=== PATIENT | male | born 1940 | race American Indian/Alaskan Native ===

== ENCOUNTER 2016-09-09 15:04 | Inpatient (IN) | payer MEDICARE ==
--- NOTE | 2016-09-09 18:36 | Emergency Department Report ---
HPI - General Chief Complaint: Urogenital-Male Time Seen by Provider: 09/09/16 18:01 - HPI HPI: This is a 76-year-old Afro-Wallisian male presents to the emergency department with complaint of left testicular pain has been going on for the past 2 days. He denies any trauma. He denies any skin color change, swelling or lesions. He has not taken anything for symptoms prior to presentation. He has a past medical history of diabetes, HIV, hypertension and previous DVT. The patient is currently on Coumadin. He denies any dysuria, discharge or any problems with urination. He is visiting his son here in [place] but does not live here and therefore does not have a local primary care physician. ED Past Medical Hx - Past Medical History Hx Hypertension: Yes Hx Diabetes: Yes Hx HIV: Yes - Surgical History Additional Surgical History: brain surgery tumor - Social History Smoking Status: Never Smoker Substance Use Type: None - Medications Home Medications: Home Medications Medication Instructions Recorded Confirmed Last Taken Type Acetaminophen [Non-Aspirin Pain 500 mg PO 09/09/16 Unknown History Relief] Atazanavir Sulfate [Reyataz] 200 mg PO 09/09/16 Unknown History Coumadin 09/09/16 Unknown History Emtricitabine [Emtriva] 200 mg PO 09/09/16 Unknown History Lantus VIAL 09/09/16 Unknown History Pravastatin 09/09/16 Unknown History Raltegravir Potassium [Isentress] 400 mg PO BID 09/09/16 09/09/16 Unknown History ED Review of Systems ROS: Stated complaint: PAIN IN LEFT TESTICLE Other details as noted in HPI Comment: All other systems reviewed and negative Constitutional: denies: chills, fever Eyes: denies: eye pain, eye discharge, vision change ENT: denies: ear pain, throat pain Respiratory: denies: cough, shortness of breath, wheezing Cardiovascular: denies: chest pain, palpitations Gastrointestinal: denies: abdominal pain, nausea, diarrhea Genitourinary: testicular pain. denies: dysuria, hematuria, discharge, testicular mass Skin: denies: rash, lesions Neurological: denies: headache, weakness, paresthesias Physical Exam - Physical Exam Vital Signs: Vital Signs 09/09/16 09/09/16 09/09/16 15:42 18:00 18:01 Temperature 98.1 F Pulse Rate 69 Respiratory 16 Rate Blood Pressure 125/75 165/75 O2 Sat by Pulse 100 98 98 Oximetry 09/09/16 18:06 Temperature Pulse Rate Respiratory 16 Rate Blood Pressure O2 Sat by Pulse 98 Oximetry Physical Exam: GENERAL: The patient is well-developed well-nourished. HEENT: Normocephalic. Atraumatic. Extraocular motions are intact. Patient has moist mucous membranes. Pupils equal reactive to light bilaterally. NECK: Supple. Trachea is midline. CHEST/LUNGS: Clear to auscultation. There is no respiratory distress noted. HEART/CARDIOVASCULAR: Regular. There is no tachycardia. There is no gallop rub or murmur. ABDOMEN: Abdomen is soft, nontender. Patient has normal bowel sounds. There is no abdominal distention. SKIN: Skin is warm and dry. NEURO: The patient is awake, alert, and oriented. The patient is cooperative. The patient has no focal neurologic deficits. The patient has normal speech. MUSCULOSKELETAL: There is no tenderness or deformity. There is no limitation range of motion. There is no evidence of acute injury. : No tenderness to palpation to the penis or testicles. No inguinal hernia palpable. ED Course Vital Signs 09/09/16 09/09/16 09/09/16 15:42 18:00 18:01 Temperature 98.1 F Pulse Rate 69 Respiratory 16 Rate Blood Pressure 125/75 165/75 O2 Sat by Pulse 100 98 98 Oximetry 09/09/16 18:06 Temperature Pulse Rate Respiratory 16 Rate Blood Pressure O2 Sat by Pulse 98 Oximetry ED Medical Decision Making - Lab Data Result diagrams: 09/09/16 18:57 09/09/16 18:57 - Radiology Data Radiology results: report reviewed Testicular Doppler ultrasound shows blood flow detected to the bilateral testicles. Tunica albuginea cysts on the right. Bilateral epididymal cystic structures are noted that could be cysts or spermatoceles. Heterogenous masses are seen adjacent to the superior aspect of the left testicle. Etiology is uncertain. These could represent sequela from prior granulomatous, fibrous pseudotumor process or tumor. No current studies available for direct comparison. Urology consultation recommends. - Medical Decision Making 76-year-old male presents with a 2-3 day history of left testicular pain. Ultrasound done that shows no signs of torsion but there are some heterogenous masses around the left testicle that require a urological consultation at some point. There is no UTI. However the patient's blood work show some renal insufficiency and significant hyperkalemia with a potassium of 6.1. Patient given the hyperkalemia cocktail but will be admitted for further evaluation and treatment and has been accepted for admission by the hospitalist, Dr. Paz. - Differential Diagnosis torsion, epididymitis, malignancy Critical Care Time: No Critical care attestation.: If time is entered above; I have spent that time in minutes in the direct care of this critically ill patient, excluding procedure time. ED Disposition Clinical Impression: Left testicular pain, Hyperkalemia Disposition: OP ADMITTED IP TO THIS HOSP Is pt being admited?: Yes Condition: Stable Referrals: PRIMARY CARE, [Primary Care Provider] - 3-5 Days Time of Disposition: 22:38
--- NOTE | 2016-09-09 19:00 | Ultrasound Report ---
FINAL REPORT EXAM: US TESTICULAR DOPPLER COMP HISTORY: left side tedticular pain TECHNIQUE: Multiple grayscale sonographic images were obtained of the scrotum and its contents. Doppler interrogation of the testicles was performed. PRIORS: None. FINDINGS: The right testicle measures approximately 3.4 x 2.1 x 2.7 centimeters. It has normal echotexture and blood flow. There is a tunica albuginea cyst that measures approximately 4 x 3 x 5 millimeters. There is a cystic structure in the epididymal head that measures approximately 2 x 2 x 1 millimeters. The left testicle measures approximately 2.9 x 2 x 2.6 centimeters. It has normal echotexture and blood flow. There is a cystic structure in left epididymis that measures approximately 4 x 3 x 3 millimeters. Superior to the left testicles there is a heterogeneous mass that measures approximately 3.3 x 2.2 x 2.9 centimeters. There is a 2nd heterogeneous hyperechoic structure adjacent to this that measures approximately 9 x 8 x 6 millimeters. IMPRESSION: 1. Blood flow was detected in the testicles, bilaterally. 2. Tunica albuginea cysts is seen on the right. 3. Bilateral epididymal cystic structures are noted. These may represent epididymal cysts or spermatoceles. 4. Heterogeneous masses are seen adjacent to the superior aspect of the left testicle. Etiology is uncertain. These could represent sequelae from prior granulomatous, fibrous pseudotumor process or tumor. Other consideration would include sarcoid in the proper clinical setting. There are currently no studies available for direct comparison. Urology consultation is recommended.
[2016-09-09 19:21] LABS: Bilirubin,Urine NEG (Negative); Blood,Urine NEG (Negative); Ketones,Urine NEG (Negative); Leukocyte Esterase,Urine NEG (Negative); Nitrite,Urine NEG (Negative); Urobilinogen,Urine < 2.0 mg/dL (<2.0); WBC,Urine < 1.0 /HPF (0.0-6.0)
[2016-09-09 20:07] LABS: Basophils % (Auto) 0.5 % (0.0-1.8); Eosinophils % (Auto) 2.2 % (0.0-4.3); Hematocrit 50.1 % (35.5-45.6); Hemoglobin 16.2 gm/dl (11.8-15.2); Mean Corpuscular HGB Conc 32 % (32-34); Mean Corpuscular Hemoglobin 28 pg (28-32); Mean Corpuscular Volume 86 fl (84-94); Platelet Count 163 K/mm3 (140-440); Red Blood Count 5.82 M/mm3 (3.65-5.03); Red Cell Distribution Width 15.9 % (13.2-15.2); White Blood Count 6.1 K/mm3 (4.5-11.0)
[2016-09-09 20:19] LABS: INR 2.29 (0.87-1.13)
[2016-09-09 20:20] LABS: Partial Thromboplastin Time 47.3 Sec. (24.2-36.6)
[2016-09-09 20:24] LABS: BUN/Creatinine Ratio 24.7; Calcium 9.4 mg/dL (8.4-10.2)
[2016-09-09 20:48] LABS: Potassium 6.1 mmol/L (3.6-5.0)
[2016-09-09] MEDS ORDERED: KIONEX PO ONE (20:57)
[2016-09-09] MEDS ORDERED: D50W (25GM) IV ONE (20:58)
[2016-09-09] MEDS ORDERED: PROVENTIL IH ONE (20:58)
[2016-09-09] MEDS ORDERED: D50W (25GM) IV PRN (22:31)
[2016-09-09] MEDS ORDERED: ZOFRAN IV PRN (22:31)
[2016-09-09] MEDS ORDERED: TYLENOL PO PRN (22:31)
[2016-09-09] MEDS ORDERED: DULCOLAX PR PRN (22:31)
[2016-09-09] MEDS ORDERED: MILK OF MAGNESIA PO PRN (22:31)
--- NOTE | 2016-09-09 23:06 | History and Physical Report ---
History of Present Illness Date of examination: 09/09/16 Chief complaint: Left testicular pain for 2 days History of present illness: This is a 76-year-old Afro-Maldivian male presents to the emergency department with complaint of left testicular pain for the past 2 days. He denies any trauma. He denies any skin color change, swelling or lesions. He has not taken anything for symptoms prior to presentation. He has a past medical history of diabetes, HIV, hypertension and previous DVT. The patient is currently on Coumadin. He denies any dysuria, discharge or any problems with urination. He is visiting his son here in [place] but does not live here and therefore does not have a local primary care physician. 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) Social history: no significant social history Family history: diabetes, hypertension Medications and Allergies Allergies Allergy/AdvReac Type Severity Reaction Status Date / Time No Known Allergies Allergy Verified 09/09/16 15:41 Home Medications Medication Instructions Recorded Confirmed Last Taken Type Acetaminophen [Non-Aspirin Pain 500 mg PO 09/09/16 Unknown History Relief] Atazanavir Sulfate [Reyataz] 200 mg PO 09/09/16 Unknown History Coumadin 09/09/16 Unknown History Emtricitabine [Emtriva] 200 mg PO 09/09/16 Unknown History Lantus VIAL 09/09/16 Unknown History Pravastatin 09/09/16 Unknown History Raltegravir Potassium [Isentress] 400 mg PO BID 09/09/16 09/09/16 Unknown History Active Meds: Active Medications Acetaminophen (Tylenol) 650 mg PO Q4H PRN PRN Reason: Pain MILD(1-3)/Fever >100.5/BASS Acetaminophen/Hydrocodone Bitart (Carmen 5/325) 1 each PO Q6H PRN PRN Reason: Pain, Moderate (4-6) Bisacodyl (Dulcolax) 10 mg HI QDAY PRN PRN Reason: Constipation unrelieved by MOM Dextrose (D50w (25gm)) 50 ml IV PRN PRN PRN Reason: Hypoglycemia Emtricitabine (Emtriva) 200 mg PO DAILY LUCY Sodium Chloride (Nacl 0.45% 1000 Ml) 1,000 mls @ 75 mls/hr IV DIRECT LUCY Insulin Aspart (Novolog) 0 units SUB-Q ACHS LUCY PRN Reason: Protocol Insulin Detemir (Levemir) 22 units SUB-Q QHS [facility] Losartan Potassium (Cozaar) 100 mg PO DAILY [facility] Magnesium Hydroxide (Milk Of Magnesia) 30 ml PO Q4H PRN PRN Reason: Constipation Miscellaneous Medication (Atazanavir Sulfate [Reyataz]) 200 mg PO DAILY [facility] Ondansetron HCl (Zofran) 4 mg IV Q8H PRN PRN Reason: N/V unrelieved by Reglan Raltegravir (Isentress) 400 mg PO BID [facility] Simvastatin (Zocor) 40 mg PO QHS LUCY Warfarin Sodium (Coumadin) 5 mg PO 1700 LUCY PRN Reason: Protocol Warfarin Sodium (Coumadin Pharmacy To Dose) 1 each PO PKCONSULT [facility] PRN Reason: Protocol Review of Systems Constitutional: no weight loss, no fever, no chills, no fatigue Ears, nose, mouth and throat: no ear pain, no ear discharge, no sinus pressure, no sore throat, no headache Cardiovascular: high blood pressure, no chest pain, no palpitations, no syncope , no lightheadedness, no shortness of breath Respiratory: no cough, no shortness of breath Gastrointestinal: no abdominal pain, no nausea, no vomiting, no diarrhea, no constipation, no melena Genitourinary Male: testicular pain (left sided for 2 days), no dysuria, no hematuria, no flank pain, no urinary frequency, no incontinence Rectal: no pain Musculoskeletal: no neck pain, no low back pain Integumentary: no rash Neurological: no head injury, no seizures, no syncope, no headaches Psychiatric: no anxiety, no depression Endocrine: no polyphagia, no excessive thirst, no polydipsia Exam - Constitutional Vitals: Temp Pulse Resp BP Pulse Ox 98.1 F 72 12 156/79 100 09/09/16 15:42 09/09/16 22:51 09/09/16 22:51 09/09/16 22:44 09/09/16 22:44 General appearance: Present: no acute distress - EENT Eyes: Present: PERRL, EOM intact ENT: hearing intact, clear oral mucosa, no thrush - Neck Neck: Present: supple, normal ROM. Absent: masses or JVD, carotid bruits - Respiratory Respiratory effort: normal Respiratory: bilateral: CTA - Cardiovascular Rhythm: regular Heart Sounds: Present: S1 & S2 - Extremities Extremities: No edema - Abdominal General gastrointestinal: Present: soft, non-tender, non-distended. Absent: hepatomegaly, splenomegaly Male genitourinary: Absent: scrotal edema (and nontender as is felt the left scrotum above the testicle) - Rectal Rectal Exam: deferred - Integumentary Integumentary: Present: warm, dry (diffuse subcutaneous lipomatosis) - Musculoskeletal Musculoskeletal: strength equal bilaterally - Neurologic Neurologic: no focal deficits, moves all extremities Results - Labs CBC & Chem 7: 09/09/16 18:57 09/09/16 18:57 Labs: Abnormal lab results 09/09/16 09/09/16 09/09/16 Range/Units 18:57 18:57 18:57 RBC 5.82 H (3.65-5.03) M/mm3 Hgb 16.2 H (11.8-15.2) gm/dl Hct 50.1 H (35.5-45.6) % RDW 15.9 H (13.2-15.2) % [facility] % (Auto) 12.1 H (0.0-7.3) % PT 25.3 H (12.2-14.9) Sec. INR 2.29 H (0.87-1.13) APTT 47.3 H (24.2-36.6) Sec. Potassium 6.1 H* (3.6-5.0) mmol/L Carbon Dioxide 21 L (22-30) mmol/L BUN 42 H (9-20) mg/dL Creatinine 1.7 H (0.8-1.5) mg/dL Assessment and Plan - Patient Problems (1) Hyperkalemia Current Visit: Yes Status: Acute Plan to address problem: Most likely gin inhibitor induced Patient was given Kayexalate Recheck serum electrolytes in the morning (2) CKD (chronic kidney disease) stage 3, GFR 30-59 ml/min Current Visit: Yes Status: Chronic Plan to address problem: Patient states that his baseline creatinine is about 1.5 (3) Type 2 diabetes mellitus treated with insulin Current Visit: Yes Status: Chronic Plan to address problem: Continue sliding-scale coverage and basal insulin (4) HTN (hypertension) Current Visit: Yes Status: Chronic Qualifiers: Hypertension type: H Plan to address problem: Hold GIN inhibitor as the patient has hyperkalemia Monitor blood pressure Start on hydralazine (5) HIV (human immunodeficiency virus infection) Current Visit: Yes Status: Chronic Plan to address problem: Continue home medications (6) Left testicular pain Current Visit: Yes Status: Acute Plan to address problem: There is minimal testicular tenderness on physical examination Ultrasound of the testicle shows heterogeneous mass above the left testicle I feel this is most likely lipoma as the patient has diffuse lipomatosis all over Does not appear to be epididymitis Pain control Patient says that he for a tight underwear yesterday and since then the pain has started
[2016-09-10] MEDS: NORCO 5/325 PO PRN ×2 (01:46→09:53)
[2016-09-10] MEDS: APRESOLINE PO SCH ×3 (01:49→15:22)
--- NOTE | 2016-09-10 02:11 | Admit Criteria Form ---
Admission Criteria Documentation: HYPONATREMIA; HYPERNATREMIA; HYPOKALEMIA; HYPERKALEMIA; HYPOCALCEMIA; HYPERCALCEMIA Clinical Indications for Inpatient Care (Place 'X' for any and all applicable criteria): Ongoing inpatient care may be indicated for ANY ONE of the following [G](1)(2)(3 )(5): [ ]I. Hyponatremia with ANY ONE of the following: [ ]a) Sodium less than 130 mEq/L (mmol/L) (new) (6)(22) [ ]b) Sodium less than 135 mEq/L (mmol/L) with ANY ONE of the following: [ ]i) Severe medical etiology requiring inpatient management (eg, heart failure, hypovolemia) [ ]ii) Altered mental status [ ]iii) Seizures [ ]II. Hypernatremia with ANY ONE of the following: [ ]a) Sodium greater than 155 mEq/L (mmol/L) [ ]b) Sodium greater than 150 mEq/L (mmol/L) with ANY ONE of the following: [ ] i) Altered mental status [ ]ii) Seizures [ ]iii) Severe medical etiology (eg, hypovolemia, diabetes insipidus) [ ]iv) Severe weakness [ ]v) Severe medical etiology (eg, hemolysis, infection, drug overdose) [ ]III. Hypokalemia with ANY ONE of the following: [ ]a) Potassium less than 2.5 mEq/L (mmol/L) despite outpatient and emergency treatment [ ]b) Potassium less than 3.0 mEq/L (mmol/L) with ANY ONE of the following: [ ]i) Weakness [ ]ii) Cardiac abnormality (eg, arrhythmia, conduction disturbance) [ ]iii) Cardiac ischemia [ ]iv) Ileus [ ]v) Ongoing medical cause requiring inpatient management. ( e.g., acute renal wasting, SIADH) [ ]vi) Other severe symptoms [ X] IV. Hyperkalemia with ANY ONE of the following: [X ]a) Potassium greater than 6.5 mEq/L (mmol/L) [ ]b) Potassium greater than 5 mEq/L (mmol/L) with ANY ONE of the following: [ ]i) Severe ECG findings [H] [ ]ii) Acute worsening of renal failure (creatinine greater than 2.5 mg/dL (221 micromoles/L) or significant elevation for age and size) [ ] V. Hypocalcemia with ANY ONE of the following: [ ]a) Calcium less than 7 mg/dL (1.75 mmol/L) despite outpatient and emergency treatment(19) [ ]b) Calcium less than 8 mg/dL (2 mmol/L) with significant symptoms or findings; examples include: [ ]i) Cardiac abnormality (eg, arrhythmia or conduction disturbance) [ ]ii) Altered mental status [ ]iii) Seizures [ ]iv) Breathing difficulty [ ]v) Muscle spasms [ ]. Hypercalcemia with ANY ONE of the following: [ ]a) Calcium greater than 14 mg/dL (3.5 mmol/L) [ ]b) Calcium greater than 12 mg/dL (3 mmol/L) with ANY ONE of the following: [ ]i) Significant dehydration or hypovolemia as indicated by ANY ONE of the following(2): [ ]1. Clinically significant dehydration as indicated by ANY ONE of the following: [ ]A. Acute loss of weight from baseline (5% of body weight in adults, 9% in pediatric patients) [ ]B. Hemodynamic instability [ ]C. Acute renal failure [ ]D. Serum sodium greater than 150 mEq/L (mmol/L) [ ]2) Dehydration that is persistent indicated by ALL of the following: [ ]A. Oral rehydration therapy not tolerated or insufficient to adequately correct dehydration [ ]B. Appropriate intravenous treatment (eg, fluids ) does not readily correct dehydration ie, after 12 to 24 hours of treatment) [ ]ii) Significant symptoms or findings; examples include: [ ]1) Altered mental status [ ]2) Cardiac abnormality (eg, arrhythmia, conduction disturbance) [ ]3) Cardiac abnormality (eg, arrhythmia, conduction disturbance) The original [email or web address] content created by [email or web address] has been revised. The portions of the content which have been revised are identified through the use of italic text or in bold, and [facility] has neither reviewed nor approved the modified material. All other unmodified content is copyright [facility] [employer] Please see references footnoted in the original [facility] edition 2016 Admission Criteria Met: Yes
[2016-09-10] MEDS: NOVOLOG SUB-Q SCH ×5 (04:40→23:01)
[2016-09-10] MEDS: NACL 0.45% 1000 ML 1,000 ML IV SCH (05:01)
[2016-09-10] MEDS ORDERED: NOVOLOG SUB-Q SCH (07:30)
[2016-09-10 08:05] LABS: BUN/Creatinine Ratio 24.7; Calcium 8.7 mg/dL (8.4-10.2); Potassium 5.1 mmol/L (3.6-5.0)
[2016-09-10] MEDS ORDERED: KIONEX PO ONE (08:30)
[2016-09-10 08:31] LABS: Hematocrit 46.5 % (35.5-45.6); Hemoglobin 14.9 gm/dl (11.8-15.2); Mean Corpuscular HGB Conc 32 % (32-34); Mean Corpuscular Hemoglobin 28 pg (28-32); Mean Corpuscular Volume 86 fl (84-94); Platelet Count 145 K/mm3 (140-440); Red Blood Count 5.44 M/mm3 (3.65-5.03); Red Cell Distribution Width 16.2 % (13.2-15.2); White Blood Count 6.5 K/mm3 (4.5-11.0)
[2016-09-10] MEDS ORDERED: COZAAR PO SCH (10:00)
[2016-09-10] MEDS ORDERED: EMTRIVA PO SCH ×2 (10:00→22:00)
[2016-09-10] MEDS ORDERED: NON-FORMULARY (Atazanavir Sulfate [Reyataz] 200 MG) PO SCH (10:00)
--- NOTE | 2016-09-10 10:33 | Progress Note ---
Assessment and Plan Assessment and plan: Hyperkalemia due to CKD. Give kayexalete. repeat BMP Left scrotal pain. Ultrasound shows masses above left testcle. Urologist consulted Bradycardia with Mobitz type 2 block and pauses. Consult cardiology. I discussed with auto rental clerk. For stress test in am. Chronic kidney disease stage 3. Avoid nephrotoxins. Diabetes mellitus type 2. Fingerstick qac and hs HIV infection. Cont HAART Multiple lipomas, chronic History Interval history: Generaized weakness Hospitalist Physical - Physical exam Narrative exam: Gen: Not in acute distress, HEENT: Normocephalic, atraumatic Neck: supple, no JVD Lungs:Lungs clear to auscultation, bilaterally, no crackles or wheeze Heart S1-S2 regular, no murmurs rubs or gallop, Abdomen: soft, non tender, non distended, normal bowel sounds , Ext: No edema, clubbing or cyanosis. skin:multiple lipomas :small mass above left testicle Neuro: Awake.alert, oriented x 3, non focal - Constitutional Vitals: Temp Pulse Resp BP Pulse Ox 98.6 F 59 L 18 133/61 93 09/10/16 10:09 09/10/16 10:09 09/10/16 10:09 09/10/16 10:09 09/10/16 10:09 General appearance: Present: no acute distress Results - Labs CBC & Chem 7: 09/10/16 07:55 09/10/16 07:14 Labs: Laboratory Last Values WBC 6.5 K/mm3 (4.5-11.0) 09/10/16 07:55 RBC 5.44 M/mm3 (3.65-5.03) H 09/10/16 07:55 Hgb 14.9 gm/dl (11.8-15.2) 09/10/16 07:55 Hct 46.5 % (35.5-45.6) H 09/10/16 07:55 MCV 86 fl (84-94) 09/10/16 07:55 MCH 28 pg (28-32) 09/10/16 07:55 MCHC 32 % (32-34) 09/10/16 07:55 RDW 16.2 % (13.2-15.2) H 09/10/16 07:55 Plt Count 145 K/mm3 (140-440) 09/10/16 07:55 Lymph % (Auto) 32.6 % (13.4-35.0) 09/09/16 18:57 [place] % (Auto) 12.1 % (0.0-7.3) H 09/09/16 18:57 Eos % (Auto) 2.2 % (0.0-4.3) 09/09/16 18:57 Baso % (Auto) 0.5 % (0.0-1.8) 09/09/16 18:57 Lymph # 2.0 K/mm3 (1.2-5.4) 09/09/16 18:57 [place] # 0.7 K/mm3 (0.0-0.8) 09/09/16 18:57 Eos # 0.1 K/mm3 (0.0-0.4) 09/09/16 18:57 Baso # 0.0 K/mm3 (0.0-0.1) 09/09/16 18:57 Seg Neutrophils % 52.6 % (40.0-70.0) 09/09/16 18:57 Seg Neutrophils # 3.2 K/mm3 (1.8-7.7) 09/09/16 18:57 PT 25.3 Sec. (12.2-14.9) H 09/09/16 18:57 INR 2.29 (0.87-1.13) H 09/09/16 18:57 APTT 47.3 Sec. (24.2-36.6) H 09/09/16 18:57 Sodium 139 mmol/L (137-145) 09/10/16 07:14 Potassium 5.1 mmol/L (3.6-5.0) H 09/10/16 07:14 Chloride 107.0 mmol/L (98-107) 09/10/16 07:14 Carbon Dioxide 19 mmol/L (22-30) L 09/10/16 07:14 Anion Gap 18 mmol/L 09/10/16 07:14 BUN 42 mg/dL (9-20) H 09/10/16 07:14 Creatinine 1.7 mg/dL (0.8-1.5) H 09/10/16 07:14 Estimated GFR 48 ml/min 09/10/16 07:14 BUN/Creatinine Ratio 24.70 % 09/10/16 07:14 Glucose 131 mg/dL (75-100) H 09/10/16 07:14 POC Glucose 172 (70-105) H 09/10/16 00:42 Calcium 8.7 mg/dL (8.4-10.2) 09/10/16 07:14 Urine Color Yellow (Yellow) 09/09/16 19:00 Urine Turbidity Clear (Clear) 09/09/16 19:00 Urine pH 6.0 (5.0-7.0) 09/09/16 19:00 Ur Specific [place] 1.014 (1.003-1.030) 09/09/16 19:00 Urine Protein 30 mg/dl mg/dL (Negative) 09/09/16 19:00 Urine Glucose (UA) Neg mg/dL (Negative) 09/09/16 19:00 Urine Ketones Neg mg/dL (Negative) 09/09/16 19:00 Urine Blood Neg (Negative) 09/09/16 19:00 Urine Nitrite Neg (Negative) 09/09/16 19:00 Urine Bilirubin Neg (Negative) 09/09/16 19:00 Urine Urobilinogen < 2.0 mg/dL (<2.0) 09/09/16 19:00 Ur Leukocyte Esterase Neg (Negative) 09/09/16 19:00 Urine WBC (Auto) < 1.0 /HPF (0.0-6.0) 09/09/16 19:00 Urine RBC (Auto) 3.0 /HPF (0.0-6.0) 09/09/16 19:00
--- NOTE | 2016-09-10 10:58 | Consultation ---
History of Present Illness Consult date: 09/10/16 Requesting physician: SAMY SANTO Consult reason: other (bradycardia) History of present illness: This is a 76-year-old gentleman who is visiting his son from [facility] has history of chronic renal insufficiency, HIV, hypertension, and hyperlipidemia and chronic DVT been having 2 days of testosterone plain on denies any fever or chills this morning on telemetry patient was found to have a Mobitz type 2-1 block with a 2 second pause patient denies any chest pain [place] breath syncope or lightheadedness during episode or has not have history of lightheadedness dizziness palpitations or syncope. Patient has no fever no chills no melanoma 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) Social history: no significant social history Family history: diabetes, hypertension Medications and Allergies Allergies Allergy/AdvReac Type Severity Reaction Status Date / Time No Known Allergies Allergy Verified 09/09/16 15:41 Home Medications Medication Instructions Recorded Confirmed Last Taken Type Acetaminophen [Non-Aspirin Pain 500 mg PO 09/09/16 Unknown History Relief] Atazanavir Sulfate [Reyataz] 200 mg PO 09/09/16 Unknown History Coumadin 09/09/16 Unknown History Emtricitabine [Emtriva] 200 mg PO 09/09/16 Unknown History Lantus VIAL 09/09/16 Unknown History Pravastatin 09/09/16 Unknown History Raltegravir Potassium [Isentress] 400 mg PO BID 09/09/16 09/09/16 Unknown History Active Meds: Active Medications Acetaminophen (Tylenol) 650 mg PO Q4H PRN PRN Reason: Pain MILD(1-3)/Fever >100.5/BASS Acetaminophen/Hydrocodone Bitart ([place] 5/325) 1 each PO Q6H PRN PRN Reason: Pain, Moderate (4-6) Last Admin: 09/10/16 09:53 Dose: 1 each Bisacodyl (Dulcolax) 10 mg [place] QDAY PRN PRN Reason: Constipation unrelieved by MOM Dextrose (D50w (25gm)) 50 ml IV PRN PRN PRN Reason: Hypoglycemia Emtricitabine (Emtriva) 200 mg PO DAILY [facility] Hydralazine HCl (Apresoline) 25 mg PO Q8H LUCY Last Admin: 09/10/16 09:47 Dose: 25 mg Sodium Chloride (Nacl 0.45% 1000 Ml) 1,000 mls @ 75 mls/hr IV DIRECT LUCY Last Admin: 09/10/16 05:01 Dose: 75 mls/hr Insulin Aspart (Novolog) 0 units SUB-Q ACHS LUCY PRN Reason: Protocol Last Admin: 09/10/16 08:47 Dose: Not Given Insulin Detemir (Levemir) 22 units SUB-Q QHS LUCY Magnesium Hydroxide (Milk Of Magnesia) 30 ml PO Q4H PRN PRN Reason: Constipation Miscellaneous Medication (Atazanavir Sulfate [Reyataz]) 200 mg PO DAILY LUCY Ondansetron HCl (Zofran) 4 mg IV Q8H PRN PRN Reason: N/V unrelieved by Diego Raltegravir (Isentress) 400 mg PO BID LUCY Simvastatin (Zocor) 40 mg PO QHS LUCY Warfarin Sodium (Coumadin) 5 mg PO 1700 LUCY PRN Reason: Protocol Warfarin Sodium (Coumadin Pharmacy To Dose) 1 each PO PKCONSULT LUCY PRN Reason: Protocol Review of Systems All systems: negative (as per the HPI) Physical Examination Vital Signs Temp Pulse Resp BP Pulse Ox 98.1 F 69 16 125/75 100 09/09/16 15:42 09/09/16 15:42 09/09/16 15:42 09/09/16 15:42 09/09/16 15:42 General appearance: no acute distress, well-nourished HEENT: Positive: PERRL, Mucus Membranes Moist Neck: Positive: neck supple, trachea midline Cardiac: Positive: Reg Rate and Rhythm, S1/S2. Negative: Audible Murmur Lungs: Positive: clear to auscultation, Normal Breath Sounds Neuro: Positive: Grossly Intact Abdomen: Positive: Soft, Active Bowel Sounds. Negative: Tender, Distended Male genitourinary: Positive: deferred Skin: Positive: Clear Incision: Cardiac Cath Site Musculoskeletal: No Pain, Normal Range of Motion Extremities: Present: normal. Absent: edema Results 09/10/16 07:55 09/10/16 07:14 CBC 09/10/16 Range/Units 07:55 WBC 6.5 (4.5-11.0) K/mm3 RBC 5.44 H (3.65-5.03) M/mm3 Hgb 14.9 (11.8-15.2) gm/dl Hct 46.5 H (35.5-45.6) % Plt Count 145 (140-440) K/mm3 Comprehensive Metabolic Panel 09/10/16 Range/Units 07:14 Sodium 139 (137-145) mmol/L Potassium 5.1 H (3.6-5.0) mmol/L Chloride 107.0 (98-107) mmol/L Carbon Dioxide 19 L (22-30) mmol/L BUN 42 H (9-20) mg/dL Creatinine 1.7 H (0.8-1.5) mg/dL Glucose 131 H (75-100) mg/dL Calcium 8.7 (8.4-10.2) mg/dL - Imaging and Cardiology Stress echo: pending Echo: pending EKG interpretations - Telemetry EKG Rhythm: Sinus Rhythm (normal sinus rhythm) block left axis deviation left anterior Fasco block and on telemetry had a Mobitz type 2-1 block with 2 second pulse) Assessment and Plan Bradycardia with Mobitz type 2-1 block with 2 second pauses Testicular pain Acute on chronic renal insufficiency Hyperlipidemia HIV Recommend treadmill thallium stress test looking for chronotropic incompetence an echocardiogram for LV function
[2016-09-10] MEDS ORDERED: PERCOCET 5/325 PO PRN (12:58)
[2016-09-10] MEDS ORDERED: COUMADIN PO SCH (17:00)
[2016-09-10] MEDS ORDERED: REYATAZ PO SCH ×2 (17:00→22:00)
[2016-09-10] MEDS: ISENTRESS PO SCH ×2 (18:30→23:00)
[2016-09-10] MEDS ORDERED: ZOCOR PO SCH (22:00)
[2016-09-10] MEDS ORDERED: LEVEMIR SUB-Q SCH (22:00)
[2016-09-11] MEDS: NACL 0.45% 1000 ML 1,000 ML IV SCH (00:51)
[2016-09-11] MEDS: APRESOLINE PO SCH ×2 (00:52→08:16)
[2016-09-11 06:35] LABS: BUN/Creatinine Ratio 21.25; Calcium 8.4 mg/dL (8.4-10.2); Chloride 104.5 mmol/L (98-107); Potassium 4.8 mmol/L (3.6-5.0)
[2016-09-11 06:38] LABS: INR 2.65 (0.87-1.13)
[2016-09-11] MEDS: NOVOLOG SUB-Q SCH ×2 (08:16→12:26)
[2016-09-11] MEDS ORDERED: LEXISCAN IV ONE ×2 (08:27→09:00)
--- NOTE | 2016-09-11 09:29 | Progress Note ---
Assessment and Plan 76-year-old male intermittent asymptomatic AV block ECHO pending MPI pending no evidence of chronotropic incompetence on ETT portion, nuclear images pending testicular pain history of chronic renal insufficiency HIV hypertension hyperlipidemia chronic DVT Subjective Date of service: 09/11/16 Interval history: Pt in the stress lab denies chest pain, shortness of breath, edema Objective Vital Signs Temp Pulse Pulse Resp BP BP Pulse Ox 09/11/16 08:37 97.7 F 56 L 18 112/62 98 09/11/16 08:31 71 09/11/16 04:20 97.6 F 50 L 20 131/59 97 09/11/16 00:59 97.6 F 61 22 108/62 95 09/11/16 00:52 61 108/62 09/10/16 20:15 97.7 F 58 L 20 112/53 95 09/10/16 17:27 97.6 F 68 18 180/81 100 - Physical Examination HEENT: Positive: PERRL, Mucus Membranes Moist Neck: Positive: neck supple, trachea midline Cardiac: Positive: Reg Rate and Rhythm Lungs: Positive: Normal Exam, clear to auscultation, Normal Breath Sounds Neuro: Positive: Grossly Intact Abdomen: Positive: Soft, Active Bowel Sounds. Negative: Tender, Distended Skin: Positive: Clear Musculoskeletal: No Pain, Normal Range of Motion Extremities: Present: normal. Absent: edema - Labs and Meds Coagulation 09/11/16 Range/Units 04:36 PT 28.4 H (12.2-14.9) Sec. INR 2.65 H (0.87-1.13) Comprehensive Metabolic Panel 09/11/16 Range/Units 04:36 Sodium 138 (137-145) mmol/L Potassium 4.8 (3.6-5.0) mmol/L Chloride 104.5 (98-107) mmol/L Carbon Dioxide 23 (22-30) mmol/L BUN 34 H (9-20) mg/dL Creatinine 1.6 H (0.8-1.5) mg/dL Glucose 111 H (75-100) mg/dL Calcium 8.4 (8.4-10.2) mg/dL - Imaging and Cardiology Exercise stress test: pending Echo: pending
[2016-09-11] MEDS ORDERED: ZESTRIL PO SCH (10:00)
--- NOTE | 2016-09-11 10:18 | Progress Note ---
Assessment and Plan Assessment and plan: Hyperkalemia due to CKD. Now resolved. Left scrotal pain. Ultrasound shows masses above left testicle. Urologist consulted Bradycardia with Mobitz type 2 block and pauses. Consulted cardiology. I discussed with supervisor grain and yeast plants. Stress test today Chronic kidney disease stage 3. Avoid nephrotoxins. Diabetes mellitus type 2. Fingerstick qac and hs HIV infection. Cont HAART Multiple lipomas, chronic History Interval history: Generalized weakness pain left scrotum Hospitalist Physical - Physical exam Narrative exam: Gen: Not in acute distress, HEENT: Normocephalic, atraumatic Neck: supple, no JVD Lungs:Lungs clear to auscultation, bilaterally, no crackles or wheeze Heart S1-S2 regular, no murmurs rubs or gallop, Abdomen: soft, non tender, non distended, normal bowel sounds , Ext: No edema, clubbing or cyanosis. skin:multiple lipomas :small mass above left testicle Neuro: Awake.alert, oriented x 3, non focal - Constitutional Vitals: Temp Pulse Resp BP Pulse Ox 97.7 F 56 L 18 112/62 98 09/11/16 08:37 09/11/16 08:37 09/11/16 08:37 09/11/16 08:37 09/11/16 08:37 General appearance: Present: no acute distress Results - Labs CBC & Chem 7: 09/10/16 07:55 09/11/16 04:36 Labs: Laboratory Last Values WBC 6.5 K/mm3 (4.5-11.0) 09/10/16 07:55 RBC 5.44 M/mm3 (3.65-5.03) H 09/10/16 07:55 Hgb 14.9 gm/dl (11.8-15.2) 09/10/16 07:55 Hct 46.5 % (35.5-45.6) H 09/10/16 07:55 MCV 86 fl (84-94) 09/10/16 07:55 MCH 28 pg (28-32) 09/10/16 07:55 MCHC 32 % (32-34) 09/10/16 07:55 RDW 16.2 % (13.2-15.2) H 09/10/16 07:55 Plt Count 145 K/mm3 (140-440) 09/10/16 07:55 Lymph % (Auto) 32.6 % (13.4-35.0) 09/09/16 18:57 [place] % (Auto) 12.1 % (0.0-7.3) H 09/09/16 18:57 Eos % (Auto) 2.2 % (0.0-4.3) 09/09/16 18:57 Baso % (Auto) 0.5 % (0.0-1.8) 09/09/16 18:57 Lymph # 2.0 K/mm3 (1.2-5.4) 09/09/16 18:57 Moody # 0.7 K/mm3 (0.0-0.8) 09/09/16 18:57 Eos # 0.1 K/mm3 (0.0-0.4) 09/09/16 18:57 Baso # 0.0 K/mm3 (0.0-0.1) 09/09/16 18:57 Seg Neutrophils % 52.6 % (40.0-70.0) 09/09/16 18:57 Seg Neutrophils # 3.2 K/mm3 (1.8-7.7) 09/09/16 18:57 PT 28.4 Sec. (12.2-14.9) H 09/11/16 04:36 INR 2.65 (0.87-1.13) H 09/11/16 04:36 APTT 47.3 Sec. (24.2-36.6) H 09/09/16 18:57 Sodium 138 mmol/L (137-145) 09/11/16 04:36 Potassium 4.8 mmol/L (3.6-5.0) 09/11/16 04:36 Chloride 104.5 mmol/L (98-107) 09/11/16 04:36 Carbon Dioxide 23 mmol/L (22-30) 09/11/16 04:36 Anion Gap 15 mmol/L 09/11/16 04:36 BUN 34 mg/dL (9-20) H 09/11/16 04:36 Creatinine 1.6 mg/dL (0.8-1.5) H 09/11/16 04:36 Estimated GFR 51 ml/min 09/11/16 04:36 BUN/Creatinine Ratio 21.25 % 09/11/16 04:36 Glucose 111 mg/dL (75-100) H 09/11/16 04:36 POC Glucose 54 (70-105) L 09/11/16 07:32 Calcium 8.4 mg/dL (8.4-10.2) 09/11/16 04:36 Urine Color Yellow (Yellow) 09/09/16 19:00 Urine Turbidity Clear (Clear) 09/09/16 19:00 Urine pH 6.0 (5.0-7.0) 09/09/16 19:00 Ur Specific [place] 1.014 (1.003-1.030) 09/09/16 19:00 Urine Protein 30 mg/dl mg/dL (Negative) 09/09/16 19:00 Urine Glucose (UA) Neg mg/dL (Negative) 09/09/16 19:00 Urine Ketones Neg mg/dL (Negative) 09/09/16 19:00 Urine Blood Neg (Negative) 09/09/16 19:00 Urine Nitrite Neg (Negative) 09/09/16 19:00 Urine Bilirubin Neg (Negative) 09/09/16 19:00 Urine Urobilinogen < 2.0 mg/dL (<2.0) 09/09/16 19:00 Ur Leukocyte Esterase Neg (Negative) 09/09/16 19:00 Urine WBC (Auto) < 1.0 /HPF (0.0-6.0) 09/09/16 19:00 Urine RBC (Auto) 3.0 /HPF (0.0-6.0) 09/09/16 19:00
[2016-09-11] MEDS: ISENTRESS PO SCH (10:55)
[2016-09-11 15:36] VITALS: BP 130/66
--- NOTE | 2016-09-11 16:44 | Progress Note ---
Assessment and Plan mass cord h/o AIDS rec excision pt angry but understands dictated Subjective Date of service: 09/11/16 Principal diagnosis: l scrotal mass Objective - Constitutional Vitals: Vital Signs - 12hr 09/11/16 09/11/16 09/11/16 08:31 08:37 11:16 Temperature 97.7 F 97.4 F L Pulse Rate 71 Pulse Rate [ 56 L 69 Left] Pulse Rate [ Right Radial] Respiratory 18 20 Rate Blood Pressure 112/62 179/76 [Left Arm] Blood Pressure [Right Arm] O2 Sat by Pulse 98 92 Oximetry 09/11/16 15:34 Temperature 98.1 F Pulse Rate Pulse Rate [ Left] Pulse Rate [ 68 Right Radial] Respiratory 18 Rate Blood Pressure [Left Arm] Blood Pressure 130/66 [Right Arm] O2 Sat by Pulse 96 Oximetry General appearance: Present: no acute distress - Respiratory Respiratory effort: normal Extremities: no ischemia - Gastrointestinal General gastrointestinal: Present: soft, non-tender Rectal Exam: other (scarring post condy removal ) - Genitourinary Male genitourinary: symmetrical (L cord mass) - Labs CBC & Chem 7: 09/10/16 07:55 09/11/16 04:36 Labs: Abnormal lab results 09/10/16 09/10/16 09/11/16 Range/Units 16:16 21:47 04:36 PT 28.4 H (12.2-14.9) Sec. INR 2.65 H (0.87-1.13) BUN (9-20) mg/dL Creatinine (0.8-1.5) mg/dL Glucose (75-100) mg/dL POC Glucose 223 H 129 H (70-105) 09/11/16 09/11/16 09/11/16 Range/Units 04:36 07:32 11:10 PT (12.2-14.9) Sec. INR (0.87-1.13) BUN 34 H (9-20) mg/dL Creatinine 1.6 H (0.8-1.5) mg/dL Glucose 111 H (75-100) mg/dL POC Glucose 54 L 190 H (70-105)
--- NOTE | 2016-09-11 16:59 | Discharge Summary ---
Providers - Providers Date of Admission: 09/10/16 12:36 Date of discharge: 09/11/16 Attending physician: SAMY SANTO Primary care physician: COLLEEN LEMONS MD Hospitalization Condition: Good Disposition: DISCHARGED TO HOME OR SELFCARE - Discharge Diagnoses (1) Left testicular pain Status: Acute (2) CKD (chronic kidney disease) stage 3, GFR 30-59 ml/min Status: Chronic (3) HIV (human immunodeficiency virus infection) Status: Chronic (4) HTN (hypertension) Status: Chronic Qualifiers: Hypertension type: H (5) Type 2 diabetes mellitus treated with insulin Status: Chronic Exam - Constitutional Vitals: Temp Pulse Resp BP Pulse Ox 98.1 F 68 18 130/66 96 09/11/16 15:34 09/11/16 15:34 09/11/16 15:34 09/11/16 15:34 09/11/16 15:34 Plan Activity: advance as tolerated Diet: low fat, low cholesterol, low salt, diabetic, renal Additional Instructions: 1.Follow up with PCP or [facility] in 1 week. 2.Follow up with Dr. Doty in 3-5 days. 3.Check INR on Sunday Follow up with: PRIMARY CAREMD [Primary Care Provider] - 3-5 Days Forms: Warfarin Discharge Instruction Prescriptions: Insulin Glargine,Hum.rec.anlog [Lantus Solostar] 36 units SQ QHS #1 pen Warfarin [Coumadin] 5 mg PO DAILY #40 tablet
--- NOTE | 2016-09-12 01:01 | Consultation ---
HISTORY OF PRESENT ILLNESS: The patient is a 76-year-old gentleman who seems to be quite angry. He has been having left scrotal pain for quite some time. He was found to have a mass along the cord. This is slightly tender. There is no surrounding skin erythema. He said he has had this for a while. He has had a history of AIDS and blood clots. He is on Coumadin. PAST MEDICAL HISTORY: As mentioned above plus hypertension and renal failure. PAST SURGICAL HISTORY: Previous craniotomy for bleed. SOCIAL HISTORY: Negative. FAMILY HISTORY: Negative. ALLERGIES: Negative. MEDICATIONS: Antivirals and Coumadin and Tylenol. REVIEW OF SYSTEMS: As mentioned above, he is voiding well, but he also had said that he has had some atypia in the prostate. PHYSICAL EXAMINATION: GENERAL: He has a little bit of angry affect. He is in no distress. ABDOMEN: Soft, nondistended. GENITALIA: He is circumcised with some scarring on the penis from previous lesions removed, scarring around the anus as well. Testes descended bilaterally. They are mildly atrophic. He has a 2.5 x 2.5 cm left mass along the cord, not tender. No skin changes. No hernias. RECTAL: Digital rectal exam showed a rectal and anal scarring with 15 gram prostate, no nodules. IMPRESSION: History of AIDS, history of ____, history of atypical prostate and a mass along the left cord, which may be contributing to his pain and recommend excision. The patient to consider all options. If he goes home, he should see me as an outpatient. JOB# [id number] SAMMY/CAPRICE
== END 2016-09-11 17:46 | disposition home or self-care (01) | DRG 729 ==
LOC: ED 15:04 → 4A 22:31 → OBSVTOIN 09-10 12:36
PROVIDERS: ADMIT Internal Medicine; ATTEND Internal Medicine
DX: N50.812 Left testicular pain (principal); B20 Human immunodeficiency virus [HIV] disease; N17.9 Acute kidney failure, unspecified; I12.9 Hypertensive chronic kidney disease with stage 1 through stage 4 chronic kidney disease, or unspecified chronic kidney disease; E11.22 Type 2 diabetes mellitus with diabetic chronic kidney disease; N18.3 Chronic kidney disease, stage 3 (moderate); R00.1 Bradycardia, unspecified; I44.1 Atrioventricular block, second degree; E87.5 Hyperkalemia; E78.5 Hyperlipidemia, unspecified; D17.9 Benign lipomatous neoplasm, unspecified; Z86.718 Personal history of other venous thrombosis and embolism; Z79.4 Long term (current) use of insulin; Z83.3 Family history of diabetes mellitus; Z82.49 Family history of ischemic heart disease and other diseases of the circulatory system
CPT/HCPCS: 36415; 78452; 80048; 81001; 82962; 85025; 85027; 85610; 85730; 93005; 93010; 93017; 93306; 93975; 94640; 96374; 96375; A9502; G0378; J1815; J1818; J2785

== ENCOUNTER 2016-09-16 15:30 | Emergency (ER) | payer MEDICARE ==
[2016-09-16 16:00] VITALS: BP 169/78
--- NOTE | 2016-09-16 19:36 | Emergency Department Report ---
HPI - General Chief Complaint: Medical Clearance Time Seen by Provider: 09/16/16 19:11 - HPI HPI: 76-year-old male presents today requesting a refill of his Reyataz and Emtriva. Patient states that he is visiting from [place] and does not have a primary care to follow up with here. Denies any medical complaints. Denies fevers, chills, nausea, vomiting, chest pain, shortness of breath, abdominal pain. ED Past Medical Hx - Past Medical History Hx Hypertension: Yes Hx Diabetes: Yes Hx HIV: Yes - Surgical History Additional Surgical History: brain surgery tumor - Social History Smoking Status: Former Smoker Substance Use Type: None - Medications Home Medications: Home Medications Medication Instructions Recorded Confirmed Last Taken Type Acetaminophen [Non-Aspirin Pain 500 mg PO Q8HR PRN 09/09/16 09/11/16 1 Day Ago History Relief] Pravastatin 80 mg PO DAILY 09/09/16 09/10/16 1 Day Ago History Raltegravir Potassium [Isentress] 400 mg PO BID 09/09/16 09/09/16 Unknown History Emtricitabine [Emtriva] 200 mg PO QDAY 09/10/16 09/10/16 1 Day Ago History HYDROcodone/APAP 5-325 [[place] 1 each PO Q6HR PRN #20 tablet 09/11/16 Unknown Rx 5/325] Insulin Glargine,Hum.rec.anlog 36 units SQ QHS #1 pen 09/11/16 Unknown Rx [Lantus Solostar] Warfarin [Coumadin] 5 mg PO DAILY #40 tablet 09/11/16 Unknown Rx hydrALAZINE [Apresoline TAB] 25 mg PO Q8HR #90 tab 09/11/16 Unknown Rx Atazanavir Sulfate [Reyataz] 200 mg PO DAILY #30 capsule 09/16/16 Unknown Rx Emtricitabine [Emtriva] 200 mg PO DAILY #30 capsule 09/16/16 Unknown Rx ED Review of Systems ROS: Stated complaint: RX REFILL Other details as noted in HPI Constitutional: denies: chills, fever, malaise Eyes: denies: eye pain ENT: denies: ear pain, throat pain, congestion Respiratory: denies: cough, shortness of breath, wheezing Cardiovascular: denies: chest pain, palpitations Endocrine: no symptoms reported Gastrointestinal: denies: abdominal pain, nausea, vomiting Neurological: denies: headache, weakness Physical Exam - Physical Exam Vital Signs: Vital Signs 09/16/16 15:56 Temperature 97.7 F Pulse Rate 69 Respiratory 18 Rate Blood Pressure 169/78 O2 Sat by Pulse 98 Oximetry Physical Exam: GENERAL: The patient is well-developed and well-nourished. Patient is in NAD. HEAD: Normocephalic. Atraumatic. CHEST/LUNGS: Clear to auscultation throughout. HEART/CARDIOVASCULAR: Regular rate and rhythm. No murmurs, rubs or gallops. ABDOMEN: Abdomen is soft, nontender. Bowel sounds normoactive. No guarding or rebound tenderness. EXTREMITIES: Peripheral pulses intact. Capillary refill less than 2 seconds. NEURO: Alert and oriented x 3. Normal gait. ED Course Vital Signs 09/16/16 15:56 Temperature 97.7 F Pulse Rate 69 Respiratory 18 Rate Blood Pressure 169/78 O2 Sat by Pulse 98 Oximetry ED Medical Decision Making - Lab Data Vital Signs 09/16/16 15:56 Temperature 97.7 F Pulse Rate 69 Respiratory 18 Rate Blood Pressure 169/78 O2 Sat by Pulse 98 Oximetry - Medical Decision Making 76-year-old male presents today for refill of his HIV medication. Consulted with Dr. Ernst, who is okay with providing the patient with refills. Patient is in no acute distress at this time. He will be discharged home and is encouraged to follow up with a primary care provider. He is encouraged to return to the emergency room for any worsening symptoms. Critical care attestation.: If time is entered above; I have spent that time in minutes in the direct care of this critically ill patient, excluding procedure time. ED Disposition Clinical Impression: HIV (human immunodeficiency virus infection), Medication refill Disposition: DISCHARGED TO HOME OR SELFCARE Is pt being admited?: No Does the pt Need Aspirin: No Condition: Stable Instructions: Human Immunodeficiency Virus Infection (ED), Atazanavir (By mouth ), Emtricitabine (By mouth) Additional Instructions: Follow-up with primary care provider. Return to emergency department if symptoms worsen. Prescriptions: Atazanavir Sulfate [Reyataz] 200 mg PO DAILY #30 capsule Emtricitabine [Emtriva] 200 mg PO DAILY #30 capsule Referrals: PRIMARY CARE, [Primary Care Provider] - 3-5 Days [facility] [Outside] - 3-5 Days Forms: Work/School Release Form(ED) Time of Disposition: 19:37
== END 2016-09-16 19:45 | disposition home or self-care (01) ==
LOC: ED 15:30
DX: Z76.0 Encounter for issue of repeat prescription (principal); I10 Essential (primary) hypertension; E11.9 Type 2 diabetes mellitus without complications; Z87.891 Personal history of nicotine dependence
CPT/HCPCS: 99282